=== PATIENT | male | born 1990 | race Caucasian/White ===

== ENCOUNTER 2022-07-28 18:35 | Emergency (ER) | payer OTHER, MEDICAID, SELFPAY ==
[2022-07-28 18:40] VITALS: BP 153/84; PULSE 83; RESP 16; TEMP 36.8; O2SAT 98; BMI 47.0
--- NOTE | 2022-07-28 18:44 | DI.RAD.S_ITS ---
PROCEDURE: XR KNEE RT 3V INDICATIONS: fall TECHNIQUE: 3 views of the knee were acquired. COMPARISON: None. FINDINGS: Bones: No fractures or dislocations. No suspicious bony lesions. Soft tissues: No joint effusion. No suspicious soft tissue calcifications. IMPRESSION: No acute osseous abnormalities. If clinical symptoms persist or clinical suspicion for pathology is high, a repeat examination in 7-10 days, or advanced imaging such as CT or MRI is suggested for further evaluation. Dictated by: Barbi Farrell M.D. on 07/28/2022 at 19:24 Approved by: Barbi Farrell M.D. on 07/28/2022 at 19:25
--- NOTE | 2022-07-28 21:43 | PC.NURSE ---
Addendum entered by Mallory Laurent R.N. 07/28/22 21:44: To room from triage Original Note: To room with
--- NOTE | 2022-07-28 22:30 | PC.NURSE ---
Resting quietly in NAD - no needs voiced - awaiting MD for evaluation
--- NOTE | 2022-07-28 23:15 | PC.NURSE ---
No changes in pt status at this time
--- NOTE | 2022-07-29 | PC.NURSE ---
No changes in pt status at this time
--- NOTE | 2022-07-29 01:39 | ED_ITS ---
HPI - Extremity Injury (Lower) General Chief Complaint: Extremity Injury, Lower Stated Complaint: Fell t-1, Knee pain Time Seen by Provider: 07/29/22 01:39 Source: patient Mode of arrival: Ambulatory History of Present Illness HPI Narrative: 31-year-old gentleman no significant medical problems fell down 4-5 stairs yesterday. He injured his right knee but was able to stand up and walk. 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 He comes in for further evaluation. Reports no recent fevers, cough, chills, abdominal pain. He is had no palpitations, shortness of breath chest pain. Related Data Previous Rx's Medication Instructions Recorded cyclobenzaprine 10 mg tablet 10 mg PO Q8HP PRN #20 tabs 07/27/17 Allergies Allergy/AdvReac Type Severity Reaction Status Date / Time No Known Allergies Allergy Uncoded 12/20/17 12:43 Review of Systems Review of Systems Narrative: Remainder of complete review of systems is otherwise unremarkable except for that included in the HPI. Patient History Social History Smoking Status: Never smoker Smoking Status: Never smoker Substance Use Type: does not use Exam Initial Vital Signs Initial Vital Signs: Vital Signs Temperature 98.3 F 07/28/22 18:40 Pulse Rate 83 07/28/22 18:40 Respiratory Rate 16 07/28/22 18:40 Blood Pressure 153/84 H 07/28/22 18:40 Pulse Oximetry 98 07/28/22 18:40 Oxygen Delivery Method 07/28/22 18:40 General: Alert appropriate in no acute distress Respiratory: Able to speak in full sentences, no obvious respiratory distress Skin: No obvious rashes, warm and dry Neurologic: Grossly intact no obvious asymmetries or abnormalities Psych: appropriate insight and affect, cooperative Extremity: Right knee is examined. Has no significant effusion. He has moderate tenderness but is able to completely extend and flex the knee. He is tender along the distal lateral collateral ligament and along the proximal medial collateral ligament but the knee is stable. Has no tenderness with cruciate ligament testing. There is no significant swelling, bruising or hematoma appreciated. He is able to walk with a somewhat antalgic gait. Course Orders Ordered: ED Orders 07/28/22 18:44 XR knee RT 3V Stat Vital Signs Vital signs: Vital Signs - 8 hr 07/28/22 18:40 Temperature 98.3 F Pulse Rate 83 Respiratory Rate 16 Blood Pressure 153/84 H Pulse Oximetry 98 Oxygen Delivery Method Room Air MDM - Extremity Injury (Lower) Imaging Data X-ray knee: Radiologist's Impression: FINDINGS:? ? Bones:? No fractures or dislocations.? No suspicious bony lesions.? ? Soft tissues:? No joint effusion.? No suspicious soft tissue calcifications.? ? ? IMPRESSION:? No acute osseous abnormalities.? If clinical symptoms persist or clinical suspicion for pathology is high, a repeat examination in 7-10 days, or advanced imaging such as CT or MRI is suggested for further evaluation. ? ? Dictated by: Barbi Farrell M.D. on 07/28/2022 at 19:24 ? ? [facility] Narrative Medical decision making narrative: 31-year-old gentleman who fell down 4-5 stairs, mechanical fall, yesterday. Knee is still hurting without significant effusion. He is able to bear weight. X-rays unremarkable. Notes that he is not able to climb ladders or crawl down into crawl spaces and requests a work note. This is provided. Reassurance is given. Recommended rest, ibuprofen, ice as needed. If he is still having significant pain at the end of the week he will need further evaluation and may need additional imaging if symptoms are not spontaneously improving. Questions are answered and he is safe for home discharge Discharge Plan Departure Patient Disposition: Home Clinical Impression: Strain of right knee Qualifiers: Encounter type: initial encounter Qualified Code(s): S86.911A - Strain of unspecified muscle(s) and tendon(s) at lower leg level, right leg, initial encounter Instructions: DI for Knee Sprain Activity Restrictions/Additional Instructions: Thank you for coming in today Your x-ray shows no broken bones. On your clinical exam, there is not swelling (an effusion) around the knee to suggest injury inside the knee joint itself. The tender on the middle and outside edges suggests a strain to the ligaments on either side. This will improve but does need some rest. Using ice can be helpful. Using 400 mg of ibuprofen (2 [id number] pills) and 1 Tylenol every 6 hours can be very helpful in controlling pain. There is no obvious instability of the knee and I do not think that a knee brace is going to offer much help at this time. I am going to suggest that you take the next 2 days off work to allow the knee to heal completely. If you find that you are getting worse or develop any new symptoms, please feel free to return to the emergency department for further evaluation. Prescriptions: No Action cyclobenzaprine 10 MG tablet 10 mg PO Q8HP PRNQty: 20 0RF Stand Alone Forms: Work Release Note
[2022-07-29 01:55] VITALS: BP 148/80; PULSE 80; RESP 16; O2SAT 99
== END 2022-07-29 01:55 | disposition home or self-care (01) ==
PROVIDERS: Emergency Provider Emergency Medicine
DX: S86.911A Strain of unspecified muscle(s) and tendon(s) at lower leg level, right leg, initial encounter (principal); W10.9XXA Fall (on) (from) unspecified stairs and steps, initial encounter
CPT/HCPCS: 73562; 99281; 99283